=== PATIENT | female | born 1975 | race American Indian/Alaskan Native ===

== ENCOUNTER 2017-04-04 13:02 | Inpatient (IN) | payer OTHER ==
[2017-04-04] MEDS ORDERED: EMLA TP PRN (13:23)
[2017-04-04] MEDS ORDERED: PEPCID IV ONE (13:23)
[2017-04-04] MEDS ORDERED: BICITRA PO ONE (13:23)
[2017-04-04] MEDS ORDERED: REGLAN IV ONE (13:23)
[2017-04-04] MEDS ORDERED: LACTATED RINGERS 2,000 ML ONE (13:24)
--- NOTE | 2017-04-04 13:27 | History and Physical Report ---
History of Present Illness Date of examination: 04/04/17 Date of admission: 04/04/17 13:11 Chief complaint: Painful contractions Prior History of present illness: 42-year-old at 36+5 weeks presents with painful contractions, she is a [facility] patient. course complicated by polyhydramnios and cholestasis of with recommendation for delivery on the of this month. Patient had abnormal 1 hour GTT with normal repeat 3 hour. In triage, patient noted to the rupture with meconium. On my exam in the room, she is 2-3 cm dilated Patient claims she wants to . She however had not been consented in clinic for and was not aware of the risks. Spent some time discussing the risks of with the patient and provided documentation present on L&D. I explained that is safe but carries a 1% risk of rupture, in the event of rupture, eats quite possible that the fetus and mother will have significant morbidity or mortality. As patient is 42 years and does not plan to have any more kids, she has decided to proceed with repeat . Past History Past Medical History: no pertinent history Past Surgical History: section [employer] History: chlamydia. denies: gonorrhea, hepatitis B, hepatitis C, herpes, HIV, syphilis Social history: , full code. denies: smoking, alcohol abuse, prescription drug abuse, IV drug use - Obstetrical History Expected Date of Delivery: 04/27/17 Actual Gestation: 36 Week(s) 5 Day(s) : 2 Para: 1 Number of Living Children: 1 Medications and Allergies Allergies Allergy/AdvReac Type Severity Reaction Status Date / Time No Known Allergies Allergy Unverified 01/03/15 08:02 Review of Systems Constitutional: no fever, no chills, no weakness, no chronic headaches Cardiovascular: no chest pain, no orthopnea, no syncope, no lightheadedness, no shortness of breath, no dyspnea on exertion, no high blood pressure Respiratory: no cough, no cough with sputum, no shortness of breath, no dyspnea on exertion Gastrointestinal: abdominal pain, no nausea, no vomiting, no diarrhea, no constipation, no heartburn, no indigestion Genitourinary: leakage of fluid, contractions, no vaginal bleeding, no vaginal discharge - Vital Signs Vital signs: Vital Signs Pulse BP 80 132/93 04/04/17 13:13 04/04/17 13:13 Temp Pulse Resp BP Pulse Ox 80 132/93 04/04/17 13:13 04/04/17 13:13 - Physical Exam Cardiovascular: Regular rate, Normal S1, Normal S2 Lungs: Positive: Clear to auscultation, Normal air movement Abdomen: Positive: normal appearance, soft. Negative: distention, tenderness, guarding, rigidity Genitourinary (Female): Positive: normal external genitalia Uterus: Positive: enlarged (EFW ~ 4800). Negative: tender Adnexa: both: normal Extremities: Positive: normal - Obstetrical FHR: category 1 Cervical Dilatation: 2.5 station: -1 Results All other labs normal. Assessment and Plan A: 42-year-old at 36+5 presents in active labor -Cat 1 tracing -s/p Prior C-S P: -Obtain routine labs -Patient has been consented -Proceed to the OR once available - Patient Problems (1) 36 to 37 weeks gestation of Current Visit: Yes Status: Acute (2) contractions Current Visit: Yes Status: Acute (3) History of Current Visit: Yes Status: Acute
[2017-04-04] MEDS ORDERED: ANCEF/STERILE WATER 2 GM/20 ML 2 GM/20 ML SYRINGE IV NR (14:00)
[2017-04-04] MEDS ORDERED: LACTATED RINGERS 1,000 ML IV SCH (14:00)
[2017-04-04] MEDS ORDERED: PITOCin/NS 20 UNIT/1000ML DRIP 20 UNITS/1,000 ML BAG IV SCH ×2 (14:00→17:00)
[2017-04-04 14:09] LABS: Basophils # (Auto) 0.1 K/mm3 (0.0-0.1); Basophils % (Auto) 0.8 % (0.0-1.8); Eosinophils % (Auto) 0.2 % (0.0-4.3); Hematocrit 37.2 % (30.3-42.9); Hemoglobin 12.8 gm/dl (10.1-14.3); Lymphocytes # (Auto) 2.5 K/mm3 (1.2-5.4); Lymphocytes % (Auto) 26.5 % (13.4-35.0); Mean Corpuscular HGB Conc 34 % (30-34); Mean Corpuscular Hemoglobin 31 pg (28-32); Mean Corpuscular Volume 89 fl (79-97); Monocytes # (Auto) 0.7 K/mm3 (0.0-0.8); Monocytes % (Auto) 7.5 % (0.0-7.3); Platelet Count 312 K/mm3 (140-440); Red Blood Count 4.17 M/mm3 (3.65-5.03); Red Cell Distribution Width 13.1 % (13.2-15.2)
[2017-04-04] MEDS ORDERED: MORPHINE IV PRN ×2 (14:37)
[2017-04-04] MEDS ORDERED: ZOFRAN IV PRN (14:37)
[2017-04-04] MEDS ORDERED: TORADOL IV PRN (14:37)
[2017-04-04] MEDS ORDERED: NARCAN 0.4 MG/1 ML IV PRN ×2 (14:37→15:57)
--- NOTE | 2017-04-04 14:37 | Anesthesia Consultation ---
Anesthesia Consult and Med Hx Date of service: 04/04/17 - Airway Anesthetic Teeth Evaluation: Good ROM Head & Neck: Adequate Mental/Hyoid Distance: Adequate Mallampati Class: Class II Intubation Access Assessment: Probably Good - Pulmonary Exam CTA: Yes - Cardiac Exam Cardiac Exam: RRR - Pre-Operative Health Status ASA Pre-Surgery Classification: ASA2 Proposed Anesthetic Plan: Epidural, Spinal - Pulmonary Hx Asthma: No COPD: No - Cardiovascular System Hx Hypertension: No - Central Nervous System Hx Seizures: No Hx Psychiatric Problems: No - Endocrine Hx Renal Disease: No Hx End Stage Renal Disease: No Hx Hypothyroidism: No Hx Hyperthyroidism: No - Hematic Hx Anemia: No Hx Sickle Cell Disease: No - Other Systems Hx Alcohol Use: No Hx Obesity: Yes - Additional Comments Anesthesia Medical History Comments: previous , IUP
[2017-04-04] MEDS ORDERED: MORPHINE ONE (14:42)
[2017-04-04] MEDS ORDERED: ZOFRAN ONE (14:50)
[2017-04-04] MEDS ORDERED: NEO SYNEPHRINE/NS Syringe(OR USE) IV ONE (14:51)
[2017-04-04] MEDS ORDERED: SODIUM CHLORIDE FLUSH SYRINGE 10 ML IV NR ×2 (15:00→16:00)
[2017-04-04] MEDS ORDERED: VERSED ONE (15:16)
[2017-04-04] MEDS ORDERED: SUBLIMAZE ONE (15:23)
--- NOTE | 2017-04-04 15:55 | Operative Report ---
Operative Report Operative Report: DATE: 2017 PREOPERATIVE DIAGNOSIS: 42 -year-old 001 at 36+5 weeks, active labor, prior , Cholestasis of , polyhydramnios POSTOP DIAGNOSIS: As above NAME OF PROCEDURE: Repeat low transverse section Mild Adhesiolysis SURGEON: NICOLLE KEYES MD ENVIRONMENTAL PROTECTION ECONOMIST: [] ANESTHESIA: Combined spinal epidural EBL: 800 mL PATHOLOGY SPECIMEN: None URINE OUTPUT: 200 mL FINDINGS: Male in cephalic presentation, time of was 15:09, Apgars 8 and 9, weight was 6 lbs. 4 oz. or 2833 g, normal uterus tubes and ovaries bilaterally, minimal adhesions DESCRIPTION OF PROCEDURE: She was taken to the operating room where she was prepped and draped in a sterile fashion, she was placed in the dorsal supine position. Pfannenstiel incision was performed through her prior incisional scar which was carried through to underlying rectus fascia which was scored in the midline. The fascial incision was extended laterally with use of Tobin scissors, the anterior leaf was then grasped with Kochers forceps elevated dissected sharply and bluntly off the underlying rectus in a similar fashion inferior leaf was grasped elevated dissected sharply and bluntly off the underlying rectus. The rectus was in the midline, good visualization of bladder was noted. A bladder blade was placed in the patient's pelvic cavity ; bladder flap could not be created. A hysterotomy incision was then performed in the lower segment with meconium stained amniotic fluid noted, hysterotomy incision was extended laterally with the use of fingers manually. in cephalic presentation was delivered in the usual manner; cord was clamped and cut infant was handed over to waiting nursery staff. The placenta was then delivered manually intact, the uterus was exteriorized cleared of all clots and debris. Hysterotomy incision was then closed in a running locked fashion with 0 Vicryl on a CTX; using the same suture was imbricate the initial layer. Interrupted [id number] stitches were used to obtain hemostasis. Uterus was then returned to the patient's pelvic cavity; peritoneal edges were grasped with hemostats and Jessica's elevated copious irrigation was used to clear the gutters of all clots and debris. Sugicel hemostatic agent was then applied to the hysterotomy incision as a means to prevent future bleeding. The peritoneal layer was then closed in a running fashion with 3-0 Vicryl and the rectus was reapproximated with a single [id number] stitch. The fascia was closed in a running fashion with 0 Vicryl and tied in the opposite side. The subcutaneous layer was irrigated and then reapproximated with interrupted figure -of-eight stitches. The skin was closed in a subcuticular manner with 4-0 Vicryl. She tolerated the procedure well lap and instrument counts were correct 2 she did receive 2 g of Ancef prior to incision she is transferred to PACU in stable condition thank you.
[2017-04-04] MEDS ORDERED: MYLICON PO PRN (15:57)
[2017-04-04] MEDS ORDERED: TUCKS PAD TP PRN (15:57)
[2017-04-04] MEDS ORDERED: TYLENOL PO PRN (15:57)
[2017-04-04] MEDS ORDERED: ANUCORT-HC PR PRN (15:57)
--- NOTE | 2017-04-04 16:24 | Post Anesthesia Evaluation ---
- Post Anesthesia Evaluation Patient Participated: Yes Airway Patent: Yes Stable Respiratory Function: Yes Nausea/Vomiting: No Temp > 96.8F: Yes Pain Manageable: Yes Adequeate Hydration: Yes Anesthesia Complications: No Patient on Ventilator: No
[2017-04-04] MEDS ORDERED: D5LR 1,000 ML IV SCH (17:00)
[2017-04-04] MEDS: BENADRYL IV PRN (19:58)
[2017-04-04] MEDS ORDERED: SENOKOT PO PRN (22:00)
[2017-04-05] MEDS: MOTRIN PO PRN ×2 (00:52→20:23)
[2017-04-05] MEDS: PERCOCET 5/325 PO PRN ×4 (00:53→21:44)
[2017-04-05] MEDS: BENADRYL IV PRN (01:02)
[2017-04-05 05:57] LABS: Hematocrit 33.9 % (30.3-42.9); Hemoglobin 11.3 gm/dl (10.1-14.3)
[2017-04-05] MEDS ORDERED: BOOSTRIX IM ONE (06:00)
[2017-04-05] MEDS ORDERED: PHENERGAN PO PRN (08:16)
--- NOTE | 2017-04-05 08:23 | Progress Note ---
Assessment and Plan POD # 1 s/p Repeat LTCS -Doing well P: -Continue routine postop care -Anticipate discharge in 24-48 hours - Patient Problems (1) Status post repeat low transverse section Current Visit: Yes Status: Acute (2) 36 to 37 weeks gestation of Current Visit: Yes Status: Acute (3) contractions Current Visit: Yes Status: Acute (4) History of Current Visit: Yes Status: Acute Subjective - Subjective Date of service: 04/05/17 Principal diagnosis: POD # 1 Interval history: Patient seen and examined, stable doing well. No fever or chills, no shortness of breath or chest pain, pain well controlled. Has adequate bowel bladder function, hasn't ambulated yet. She does complain of pruritusand thinks is related to her cholestasis, has not tried antihistamine yet. Patient reports: appetite normal, voiding normally, pain well controlled, flatus , ambulating normally, other (pruritus), no dizzy ambulation, no nauseated : doing well Objective - Vital Signs Latest vital signs: Vital Signs Temp Pulse Resp BP BP Pulse Ox 04/05/17 06:08 98.6 F 79 18 108/63 04/05/17 00:43 98.5 F 72 20 122/70 04/04/17 21:15 99 F 72 20 112/72 04/04/17 17:30 97.5 F L 62 20 142/87 100 04/04/17 17:10 98.3 F 04/04/17 16:06 97.6 F 63 16 107/66 04/04/17 14:28 59 L 147/86 04/04/17 14:15 68 159/94 04/04/17 13:58 68 137/80 04/04/17 13:45 62 138/70 04/04/17 13:39 98.8 F 18 04/04/17 13:30 74 160/69 04/04/17 13:13 80 132/93 Intake and Output 04/04/17 04/05/17 04/05/17 23:59 07:59 15:59 Intake Total 1900 Output Total 200 900 Balance 1700 -900 Intake: IV 1900 Output: Urine 200 900 Indwelling Catheter 900 Other: Total, Output Amount 900 Estimated Blood Loss 800 - Exam Abdomen: Present: normal appearance, soft. Absent: distention, tenderness, guarding, rigidity Extremities: Present: normal Incision: Present: dressed - Labs Labs: Abnormal lab results 04/04/17 Range/Units 13:30 RDW 13.1 L (13.2-15.2) % [place] % (Auto) 7.5 H (0.0-7.3) %
[2017-04-05] MEDS: PHENERGAN PO PRN ×2 (08:31→17:00)
--- NOTE | 2017-04-05 12:19 | Progress Note ---
Subjective Date of service: 04/05/17 Principal diagnosis: POD # 1 Interval history: Patient has no residual weakness, ambulating well, voiding, no anesthesia complications, pain controlled. Complains of itching. Dr. Orozco prescribed Phenergan. Objective - Constitutional Vitals: Vital Signs - 12hr 04/05/17 04/05/17 04/05/17 00:43 06:08 08:25 Temperature 98.5 F 98.6 F Pulse Rate 72 79 Respiratory 20 18 20 Rate Blood Pressure 122/70 108/63 [Left] O2 Sat by Pulse Oximetry 04/05/17 08:54 Temperature 98.6 F Pulse Rate 72 Respiratory 20 Rate Blood Pressure 99/61 [Left] O2 Sat by Pulse 94 Oximetry - Labs CBC & Chem 7: 04/05/17 05:27 Labs: Abnormal lab results 04/04/17 Range/Units 13:30 RDW 13.1 L (13.2-15.2) % [place] % (Auto) 7.5 H (0.0-7.3) %
[2017-04-05] MEDS: LANSINOH TP PRN (16:30)
[2017-04-05] MEDS: MILK OF MAGNESIA PO PRN (21:44)
[2017-04-06] MEDS: MOTRIN PO PRN ×2 (05:59→17:15)
--- NOTE | 2017-04-06 07:52 | Progress Note ---
Assessment and Plan POD # 2 s/p Repeat LTCS -Doing well P: -Continue routine postop care -Anticipate discharge in 24-48 hours - Patient Problems (1) Status post repeat low transverse section Current Visit: Yes Status: Acute (2) 36 to 37 weeks gestation of Current Visit: Yes Status: Acute (3) contractions Current Visit: Yes Status: Acute (4) History of Current Visit: Yes Status: Acute Subjective - Subjective Date of service: 04/06/17 Principal diagnosis: POD # 2 Interval history: Patient seen and examined, stable doing well. No fever or chills, no shortness of breath or chest pain, pain well controlled. Has adequate bowel bladder function, ambulating without difficulty. Her pruritus has improved on antihistamine Patient reports: appetite normal, voiding normally, pain well controlled, flatus , ambulating normally, no dizzy ambulation, no nauseated [place]: doing well Objective - Vital Signs Latest vital signs: Vital Signs Temp Pulse Resp BP Pulse Ox 04/06/17 00:00 64 16 113/21 04/05/17 15:52 98.5 F 91 H 20 109/63 98 04/05/17 15:40 20 04/05/17 12:48 98.3 F 85 20 106/69 97 04/05/17 08:54 98.6 F 72 20 99/61 94 04/05/17 08:25 20 Intake and Output 04/05/17 04/05/17 04/06/17 15:59 23:59 07:59 Intake Total 120 300 Output Total 1800 Balance -1800 120 300 Intake: Oral 120 Intake, Free Water 300 Output: Urine 1800 Void 1800 Other: Total, Intake Amount 120 Total, Output Amount 700 # Voids Void 1 - Exam Abdomen: Present: normal appearance, soft. Absent: distention, tenderness, guarding, rigidity Uterus: Present: firm, fundal height below umbilicus. Absent: tenderness Extremities: Present: normal Incision: Present: dry, intact
--- NOTE | 2017-04-06 07:54 | Discharge Summary ---
Providers - Providers Date of Admission: 04/04/17 13:11 Date of discharge: 04/07/17 Attending physician: NICOLLE KEYES Primary care physician: NICOLLE KEYES Hospitalization Reason for admission: active labor, section Delivery: Procedure: repeat low transverse Incision: dry, intact Other procedures: none complications: none Discharge diagnosis: other (Repeat LTCS at 36+5 wks), delivery baby: male Hospital course: Uncomplicated hospital course Condition at discharge: Good Disposition: [facility] TO HOME OR SELFCARE - Discharge Diagnoses (1) Status post repeat low transverse section Status: Acute (2) 36 to 37 weeks gestation of Status: Acute (3) contractions Status: Acute (4) History of Status: Acute Plan - Discharge Medications Prescriptions: Ibuprofen [Motrin 600 MG tab] 600 mg PO Q8H PRN #30 tablet PRN Reason: Pain Multivitamin with Iron [Multivitamins with Iron] 1 each PO DAILY #30 tablet oxyCODONE /ACETAMINOPHEN [Percocet 5/325] 1 tab PO Q6HR PRN #30 tablet PRN Reason: Pain - Provider Discharge Summary Activity: no sex for 6 weeks, no heavy lifting 4 weeks, no strenuous exercise Diet: routine Additional instructions: [] Smoking cessation referral if applicable(refer to patient education folder for contact #) [] Refer to [facility]'s [facility] Booklet Call your doctor immediately for: * Fever > 100.5 * Heavy vaginal bleeding ( >1 pad per hour) * Severe persistent headache * Shortness of breath * Reddened, hot, painful area to leg or breast * Drainage or odor from incision. * Keep incision clean and dry at all times and follow doctor's instructions regarding bathing/showering - Follow up plan Follow up: NICOLLE KEYES MD [Primary Care Provider] - 14 Days
[2017-04-06] MEDS: PERCOCET 5/325 PO PRN ×2 (11:27→17:15)
[2017-04-06] MEDS: FEOSOL PO SCH (11:27)
[2017-04-06] MEDS: PRENATAL VITAMIN PO SCH (11:27)
[2017-04-06] MEDS: MILK OF MAGNESIA PO PRN (17:15)
[2017-04-06] MEDS: LANSINOH TP PRN (21:32)
[2017-04-07] MEDS: PERCOCET 5/325 PO PRN ×2 (04:18→14:45)
[2017-04-07] MEDS: MOTRIN PO PRN ×2 (04:19→14:45)
[2017-04-07] MEDS ORDERED: VASELINE TP ONE (12:14)
[2017-04-07] MEDS: PRENATAL VITAMIN PO SCH (14:45)
[2017-04-07] MEDS: FEOSOL PO SCH (14:45)
[2017-04-07 17:40] VITALS: BP 123/65
== END 2017-04-07 18:15 | disposition home or self-care (01) | DRG 765 ==
LOC: TRG 13:02 → LD 13:04 → TRG 13:09 → LD 13:11 → OB 17:14
PROVIDERS: ADMIT Obstetrics & Gynecology Gynecology; ATTEND Obstetrics & Gynecology Gynecology
PROC: 10D00Z1 Extraction of Products of Conception, Low, Open Approach (ICD-10-PCS; 2017-04-04)
PROC: 3E0234Z Introduction of Serum, Toxoid and Vaccine into Muscle, Percutaneous Approach (ICD-10-PCS; principal; 2017-04-05)
DX: O34.211 Maternal care for low transverse scar from previous cesarean delivery (principal); O60.14X0 Preterm labor third trimester with preterm delivery third trimester, not applicable or unspecified; E66.9 Obesity, unspecified; O99.214 Obesity complicating childbirth; Z37.0 Single live birth; Z23 Encounter for immunization; Z68.39 Body mass index [BMI] 39.0-39.9, adult; Z3A.36 36 weeks gestation of pregnancy
CPT/HCPCS: 36415; 85014; 85018; 85025; 86592; 86706; 86850; 86900; 86901; 87806; 90471; 90715; 99211; A6250; G0463; J0690; J1200; J2250; J2270; J2370; J2405; J2590; J2765; J3010; J7120; J7121; Q0169